=== PATIENT | female | born 1970 | race Caucasian/White ===

== ENCOUNTER 2016-09-01 07:17 | Emergency (ER) | payer OTHER ==
[~2016-09-01] VITALS: Ht 154.9 cm; Wt 67.1 kg
[~2016-09-01 07:17] MED LIST: NAPR550T PO; ORPH100T PO
[2016-09-01 07:24] VITALS: BP 142/78
--- NOTE | 2016-09-01 07:44 | ED.ADGEN ---
Past Medical History Past Medical History: No Pertinent History Past Surgical History: Other Additional Past Surgical Histo: laparoscopy Alcohol Use: Occasionally Drug Use: None Adult General Chief Complaint Chief Complaint: COUGH HPI HPI Patient is a 46 year old woman, history of tobacco abuse, seasonal allergies, who presents to the emergency department with complaint of cough for the past week. Patient states that people she lives with have been diagnosed with pneumonia, and bronchitis, also strep throat. 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 She denies any throat soreness, any fevers or chills, complains of some mild body aches, clear rhinorrhea, and cough productive of clear sputum. States she had one episode of loose brown stool yesterday, no abdominal pain, no emesis. Denies any weakness, numbness, tingling, any recent travel or surgery, is positive for sick contacts as above. States that she had a "insect bite", to the back of her leg last week, no other injuries, rashes, or complaints reported. She is not taking any medications for the symptoms prior to coming to the ED. No swelling of the extremities, history of DVT or PE. Denies any drug or alcohol use. Review of Systems Review of Systems Constitutional: Denies fever or chills. [] Eyes: Denies change in visual acuity. [] HENT: Nasal congestion with clear rhinorrhea, sore throat after coughing for several days. Respiratory: Cough or active clear sputum, no shortness of breath. Cardiovascular: Denies chest pain or edema. [] GI: Denies abdominal pain, nausea, vomiting, bloody stools or diarrhea. [] : Denies dysuria. [] Musculoskeletal: Denies back pain or joint pain. [] Integument: Denies rash. [] Neurologic: Denies headache, focal weakness or sensory changes. [] Endocrine: Denies polyuria or polydipsia. [] Lymphatic: Denies swollen glands. [] Psychiatric: Denies depression or anxiety. [] Current Medications Current Medications Current Medications Medications (Trade) Dose Ordered Sig/[facility] Start Time Stop Time Status Last Admin Dose Admin Benzonatate (Tessalon Perle) 100 mg 1X ONCE 09/01/16 07:45 09/01/16 07:46 DC 09/01/16 07:49 100 MG Naproxen (Naprosyn) 250 mg 1X ONCE 09/01/16 07:45 09/01/16 07:46 DC 09/01/16 07:48 250 MG Allergies Allergies Allergies Coded Allergies Type Severity Reaction Last Updated Verified No Known Drug Allergies 01/29/16 No Physical Exam Physical Exam Constitutional: Well developed, well nourished, no acute distress, non-toxic appearance. [] HENT: Normocephalic, atraumatic, bilateral external ears normal, oropharynx moist, no oral exudates, external nose is normal, patient with swelling of the turbinate bilaterally, mild irritation and clear rhinorrhea. Mild postnasal drip noted. No exudates or erythema of the oropharynx. Eyes: PERRLA, EOMI, conjunctiva normal, no discharge. [] Neck: Normal range of motion, no tenderness, supple, no stridor. [] Cardiovascular:Heart rate regular rhythm, no murmur, S1, S2, rubs or gallops. [] Lungs & Thorax: Bilateral breath sounds clear to auscultation, coughing initiated with deep inspiration, no chest wall crepitus or tenderness. Abdomen: Bowel sounds normal, soft, no tenderness, no rebound, rigidity, no guarding, no masses, no pulsatile masses. [] Skin: Warm, dry, no erythema, no rash. [] Back: No tenderness, no CVA tenderness. [] Extremities: No tenderness, no cyanosis, no clubbing, ROM intact, patient with healing small area of irritation, consistent with a possible insect bite on the posterior aspect of the left thigh. No evidence of induration or abscess formation, no fluctuance. [] Neurologic: Alert and oriented X 3, normal motor function, normal sensory function, no focal deficits noted. [] Psychologic: Affect normal, judgement normal, mood normal. [] Current Patient Data Vital Signs Vital Signs Date Time Temp Pulse Resp B/P (MAP) Pulse Ox O2 Delivery O2 Flow Rate FiO2 09/01/16 07:24 98.3 77 20 99 Room Air 98.3 EKG EKG Not indicated. [] Radiology/Procedures Radiology/Procedures [][facility] [address] [place] [address] IMAGING REPORT Signed PATIENT: ASA CRUZ ACCOUNT: [id number] : 1970 LOCATION: ER AGE: 46 SEX: F EXAM STATUS: REG ER ORD. PHYSICIAN: HARIS TEE DO REASON: Cough x 1 week/smoking hx, vomitting and diarreha yesterday PROCEDURE: CHEST PA & LATERAL Chest, 2 views, 09/01/2016: History: Cough Comparison is made to a study from 04/30/2011. The heart size and pulmonary vascularity are normal. The lungs are clear. There is no evidence of pleural fluid. Mild spurring is present in the spine. IMPRESSION: No acute cardiopulmonary abnormality is detected. DICTATED and SIGNED BY: CASI NOLAND MD DATE: 09/01/16 0759 CC: HARIS TEE DO; NO PCP ~ Course & Med Decision Making Course & Med Decision Making Pertinent Labs and Imaging studies reviewed. (See chart for details) Chest x-ray obtained due to persistence of patient's symptoms, and smoking history. Chest x-ray was unremarkable. Examination is consistent with a viral infection. Patient treated with Tessalon Perle in the emergency department, on reexamination coughing is improved, and there is no evidence of lower airspace disease. Discussed use of Tessalon Perle, naproxen, Nasonex, stay well-hydrated and get plenty of rest for treatment of a viral infection. Patient voiced understanding and agreement with plan as stated. Instructed her to use a mask if needed at the workplace, to wash her hands constantly, to keep her mouth and nose covered if she has any coughing or sneezing, also that as she has been experiencing symptoms for 7 days that she should be nearing the end of this viral illness, before she is to return to work on . We did discuss concerning symptoms prompt return to the emergency department for additional evaluation, medication instructions and precautions, and also smoking cessation , patient states that she is interested in obtaining a primary care provider and is taking assistance with smoking cessation. Patient was given a list of available providers along with her discharge paperwork, discharged home in stable condition with plan as above. Dragon Disclaimer Dragon Disclaimer This electronic medical record was generated, in whole or in part, using a voice recognition dictation system. Departure Impression: Primary Impression: Viral upper respiratory illness Disposition: HOME, SELF-CARE Condition: IMPROVED Scripts Mometasone Furoate (NASONEX) 17 Gm [place].pump 2 SPRAY NS DAILY, #1 INHALER 0 Refills Prov: HARIS TEE DO 09/01/16 Loratadine (LORATADINE) 10 Mg Tablet 1 TAB PO DAILY, #14 TAB 0 Refills Prov: HARIS TEE DO 09/01/16 Benzonatate (TESSALON PERLE) 100 Mg Capsule 100 MG PO TID Y for COUGH, #12 CAP Prov: HARIS TEE DO 09/01/16 Naproxen (NAPROXEN) 250 Mg Tablet 250 MG PO PRN BID Y for PAIN, #10 Prov: HARIS TEE DO 09/01/16 HARIS TEE DO September 01, 2016 07:44
[2016-09-01] MEDS ORDERED: NAPROXEN 250 MG TABLET PO ONE (07:45)
[2016-09-01] MEDS ORDERED: BENZONATATE 100 MG CAPSULE. PO ONE (07:45)
[2016-09-01] MEDS ORDERED: BENZ100C PO (07:57)
[2016-09-01] MEDS ORDERED: LORA10TA3 PO (07:57)
[2016-09-01] MEDS ORDERED: MOME17SP NS (07:57)
[2016-09-01] MEDS ORDERED: NAPR250T2 PO (07:57)
--- NOTE | 2016-09-01 08:02 | RAD ---
Chest, 2 views, 09/01/2016: History: Cough Comparison is made to a study from 04/30/2011. The heart size and pulmonary vascularity are normal. The lungs are clear. There is no evidence of pleural fluid. Mild spurring is present in the spine. IMPRESSION: No acute cardiopulmonary abnormality is detected.
== END 2016-09-01 08:05 | disposition home or self-care (01) ==
LOC: ER 07:17
DX: J06.9 Acute upper respiratory infection, unspecified (principal); R19.7 Diarrhea, unspecified; Z87.891 Personal history of nicotine dependence
CPT/HCPCS: 71020; 99284-25

== ENCOUNTER 2019-09-07 21:33 | Emergency (ER) | payer SELFPAY ==
[~2019-09-07] VITALS: Ht 154.9 cm; Wt 59.1 kg
[~2019-09-07 21:33] MED LIST changes: +BENZ100C PO; +LORA10TA3 PO; +MOME17SP NS; +NAPR-682 PO; +NAPR250T6 PO; -NAPR550T PO
[2019-09-07] MEDS ORDERED: LIDOCAINE 1% Multi-Dose 20 ML VIAL. ONE (22:42)
--- NOTE | 2019-09-07 23:20 | PHYS DOC ---
Past Medical History Past Medical History: Asthma Past Surgical History: Other Additional Past Surgical Histo: laparoscopy Smoking Status: Current Every Day Smoker Alcohol Use: Occasionally Drug Use: None General Adult EDM: Chief Complaint: LACERATION/AVULSION HPI: HPI: Patient presents with a laceration to her right index finger. She states she accidentally cut it with a knife. She states there is no trouble flexing her finger at the right MCP and PIP of the second finger. She denies any other injuries. [] Review of Systems: Review of Systems: Constitutional: Denies fever or chills. [] Eyes: Denies change in visual acuity. [] HENT: Denies nasal congestion or sore throat. [] Respiratory: Denies cough or shortness of breath. [] Cardiovascular: Denies chest pain or edema. [] GI: Denies abdominal pain, nausea, vomiting, bloody stools or diarrhea. [] : Denies dysuria. [] Musculoskeletal: Denies back pain or joint pain. [] Integument: Per HPI [] Neurologic: Denies headache, focal weakness or sensory changes. [] Endocrine: Denies polyuria or polydipsia. [] Lymphatic: Denies swollen glands. [] Psychiatric: Denies depression or anxiety. [] Heart Score: Risk Factors: Risk Factors: DM, Current or recent (<one month) smoker, HTN, HLP, family history of CAD, obesity. Risk Scores: Score 0 - 3: 2.5% MACE over next 6 weeks - Discharge Home Score 4 - 6: 20.3% MACE over next 6 weeks - Admit for Clinical Observation Score 7 - 10: 72.7% MACE over next 6 weeks - Early Invasive Strategies Current Medications: Current Medications Medications (Trade) Dose Ordered Sig/[facility] Start Time Stop Time Status Last Admin Dose Admin Lidocaine HCl (Lidocaine 1% 20ml Vial) 20 ml STK-MED ONCE 09/07/19 22:42 09/07/19 22:42 DC Allergies: Allergies: Allergies Coded Allergies Type Severity Reaction Last Updated Verified No Known Drug Allergies 01/29/16 No Physical Exam: PE: Constitutional: Well developed, well nourished, no acute distress, non-toxic appearance. [] HENT: Normocephalic, atraumatic, bilateral external ears normal, oropharynx moist, no oral exudates, nose normal. [] Eyes: PERRLA, EOMI, conjunctiva normal, no discharge. [] Neck: Normal range of motion, no tenderness, supple, no stridor. [] Cardiovascular:Heart rate regular rhythm, no murmur [] Lungs & Thorax: Bilateral breath sounds clear to auscultation [] Abdomen: Bowel sounds normal, soft, no tenderness, no masses, no pulsatile masses. [] Skin: There is a 2 cm laceration to the proximal right second finger volar surface the patient is able to flex her finger at the PIP and MCP. [] Back: No tenderness, no CVA tenderness. [] Extremities: No tenderness, no cyanosis, no clubbing, ROM intact, no edema. [] Neurologic: Alert and oriented X 3, normal motor function, normal sensory function, no focal deficits noted. [] Psychologic: Anxious l. [] Current Patient Data: Vital Signs: Vital Signs Date Time Temp Pulse Resp B/P (MAP) Pulse Ox O2 Delivery O2 Flow Rate FiO2 09/07/19 22:00 98.2 69 16 130/70 (90) 98 Room Air 98.2 EKG: EKG: [] Radiology/Procedures: Radiology/Procedures: [] Course & Med Decision Making: Course & Med Decision Making Pertinent Labs and Imaging studies reviewed. (See chart for details) Procedure: Laceration repair The wound was scrubbed with Hibiclens irrigated with saline and inspected for foreign body none of which was found. Then using 5-0 Ethilon 3 simple interrupted sutures were placed with excellent approximation of the wound edges prior to the procedure the patient was anesthetized with 6 cc of 1% lidocaine without epinephrine in the way of a digital block. [] Dragon Disclaimer: Dragon Disclaimer: This electronic medical record was generated, in whole or in part, using a voice recognition dictation system. Departure Departure Impression: Primary Impression: Finger laceration Qualified Codes: S61.210A - Laceration without foreign body of right index finger without damage to nail, initial encounter Disposition: HOME, SELF-CARE Condition: IMPROVED Referrals: NO PCP (PCP) Patient Instructions: Laceration Care, Adult Additional Instructions: Sutures out in 7 days. You can either come back here to the emergency department or follow with your primary care physician to have the sutures removed. JOHANNA TUCKER DO September 07, 2019 23:20
[2019-09-07] MEDS ORDERED: TETANUS AND DIPHTHERIA TOX/PF 0.5 ML DISP.SYRIN. VAX IM ONE (23:30)
[2019-09-07 23:40] VITALS: BP 133/60
== END 2019-09-07 23:43 | disposition home or self-care (01) ==
LOC: ER 21:33
DX: S61.210A Laceration without foreign body of right index finger without damage to nail, initial encounter (principal); J45.909 Unspecified asthma, uncomplicated; F17.200 Nicotine dependence, unspecified, uncomplicated; Z98.890 Other specified postprocedural states; W26.0XXA Contact with knife, initial encounter; Y93.89 Activity, other specified; Y92.89 Other specified places as the place of occurrence of the external cause; Y99.8 Other external cause status
CPT/HCPCS: 12001; 90471; 90714; 99283

== ENCOUNTER 2020-02-01 09:50 | Emergency (ER) | payer SELFPAY ==
[~2020-02-01] VITALS: Ht 152.4 cm; Wt 59.0 kg
[2020-02-01 10:25] VITALS: BP 123/73
--- NOTE | 2020-02-01 11:09 | RAD ---
WRIST 3V RIGHT DATE: 02/01/2020 10:18 AM INDICATION: injury, pain COMPARISON: None. FINDINGS: Bones: There is no evidence of acute fracture or dislocation. Joints: The joint spaces are normal. Miscellaneous: None. IMPRESSION: No evidence of acute fracture. Electronically signed by: Raffi Cannon MD (02/01/2020 11:06 AM) [id number]
--- NOTE | 2020-02-01 11:15 | PHYS DOC ---
Past Medical History Past Medical History: No Pertinent History, Asthma Past Surgical History: Other Additional Past Surgical Histo: laparoscopy Smoking Status: Current Every Day Smoker Alcohol Use: Occasionally Drug Use: None General Adult EDM: Chief Complaint: WRIST PAIN HPI: HPI: Patient is a 49 year old female who presents emergency department with complaints of right wrist pain after a fall yesterday while at work. Patient states that she tripped over a tote and fell. She denies any pain at rest. Patient reports the pain is with movement only. She denies any numbness, tingling, or weakness of the affected extremity. She currently denies any pain. Review of Systems: Review of Systems: Complete ROS is negative unless otherwise noted in HPI. Heart Score: Risk Factors: Risk Factors: DM, Current or recent (<one month) smoker, HTN, HLP, family history of CAD, obesity. Risk Scores: Score 0 - 3: 2.5% MACE over next 6 weeks - Discharge Home Score 4 - 6: 20.3% MACE over next 6 weeks - Admit for Clinical Observation Score 7 - 10: 72.7% MACE over next 6 weeks - Early Invasive Strategies Allergies: Allergies: Allergies Coded Allergies Type Severity Reaction Last Updated Verified No Known Drug Allergies 01/29/16 No Physical Exam: PE: Constitutional: Well developed, well nourished, no acute distress, non-toxic appearance. [] HENT: Normocephalic, atraumatic, bilateral external ears normal, nose normal. [] Eyes: PERRLA, EOMI, conjunctiva normal, no discharge. [] Neck: Normal range of motion, no stridor. [] Cardiovascular:Heart rate regular rhythm Lungs & Thorax: Respirations even and unlabored, no retractions, no respiratory distress Skin: Warm, dry, no erythema, no rash. [] Extremities: Right wrist: Lateral tenderness to palpation without crepitus or obvious deformity, 2+ radial pulse, no cyanosis, ROM intact, no edema. [] Neurologic: Alert and oriented X 3, no focal deficits noted. [] Psychologic: Affect normal, judgement normal, mood normal. [] Current Patient Data: Vital Signs: Vital Signs Date Time Temp Pulse Resp B/P (MAP) Pulse Ox O2 Delivery O2 Flow Rate FiO2 02/01/20 10:25 97.7 68 16 123/73 (90) 98 Room Air 97.7 EKG: EKG: [] Radiology/Procedures: Radiology/Procedures: PROCEDURE: WRIST 3V RIGHT WRIST 3V RIGHT DATE: 02/01/2020 10:18 AM INDICATION: injury, pain COMPARISON: None. FINDINGS: Bones: There is no evidence of acute fracture or dislocation. Joints: The joint spaces are normal. Miscellaneous: None. IMPRESSION: No evidence of acute fracture. [] Course & Med Decision Making: Course & Med Decision Making Pertinent Labs and Imaging studies reviewed. (See chart for details) [] Dragon Disclaimer: Dragon Disclaimer: This electronic medical record was generated, in whole or in part, using a voice recognition dictation system. Departure Departure Impression: Primary Impression: Acute pain of right wrist Disposition: 01 DC HOME SELF CARE/HOMELESS Condition: STABLE Referrals: NO PCP (PCP) KAREEN CRAWLEY MD Patient Instructions: Wrist Pain, [id number] Additional Instructions: Fill prescription(s) and use as directed. You may also take Tylenol as needed for pain. Recommend application of ice, elevation, and rest of affected extremity. Wear the splint that was placed until follow up appointment. Follow- up with Dr. Crawley this week, return to the ER if your symptoms worsen. Scripts Naproxen (NAPROXEN) 500 Mg Tablet 1 TAB PO BID PRN for PAIN for 10 Days, #20 TAB 0 Refills Prov: NATALIE MARIE APRN 02/01/20 Splinting Splinting : Location: Right wrist Pre-Made Type: velcro Splint: wrist Pre-Proc Neuro Vasc Exam: normal Post-Proc Neuro Vasc Exam: normal, unchanged from pre-exam NATALIE MARIE APRN Feb 01, 2020 11:15
[2020-02-01] MEDS ORDERED: NAPR-514 PO (11:31)
== END 2020-02-01 11:40 | disposition home or self-care (01) ==
LOC: ER 09:50
DX: M25.531 Pain in right wrist (principal); J45.909 Unspecified asthma, uncomplicated; F17.200 Nicotine dependence, unspecified, uncomplicated; Z98.890 Other specified postprocedural states
CPT/HCPCS: 29125; 73110; 99284